=== PATIENT | female | born 1945 | race Caucasian/White ===

== ENCOUNTER 2018-05-25 08:39 | Day surgery (SDC) | payer OTHER ==
[~2018-05-25 08:39] MED LIST: PROPOFOL 500 MG/50 ML EMU IV ONE
[2018-05-25 10:28] VITALS: BP 107/65; PULSE 57; RESP 20; TEMP 97.7; O2SAT 99
== END 2018-05-25 10:35 | disposition home or self-care (01) | DRG 951 ==
LOC: SURG 08:39
PROVIDERS: ATTEND Surgery
DX: Z12.11 Encounter for screening for malignant neoplasm of colon (principal); K57.32 Diverticulitis of large intestine without perforation or abscess without bleeding; Z80.0 Family history of malignant neoplasm of digestive organs; D12.0 Benign neoplasm of cecum
CPT/HCPCS: J2704